=== PATIENT | male | born 1990 | race Caucasian/White ===

== ENCOUNTER 2016-08-21 20:06 | Emergency (ER) | payer BC ==
[~2016-08-21 20:06] MED LIST: Acetaminophen/HYDROcodone 325-5 MG Tab PO ONE; Ketorolac 10 MG Tab PO ONE
[2016-08-21 20:11] VITALS: BP 137/77
[2016-08-21] MEDS ORDERED: Take Home: Acetaminophen/HYDROcodone 325-5 MG, 2 Tab Pack PO ONE (20:52)
[2016-08-21] MEDS ORDERED: Take Home: Ketorolac 10 MG Tab, 4 Tab Pack PO ONE (20:53)
--- NOTE | 2016-08-21 20:57 | EDM.PDOC ---
ED HPI Trauma - General Chief Complaint: Lower Extremity Injury/Pain Stated Complaint: "I think I broke my foot" Time Seen by Provider: 08/21/16 20:29 Source: Reports: Patient History Limitations: Reports: No limitations - History of Present Illness INITIAL COMMENTS - FREE TEXT/NARRATIVE: Sebastián is a 26 yo male who presents to the ER with concerns of a foot fracture. States [place] out [place] the farm today and dropped a hitch onto his foot around 12: 30. States he worked the rest of the day and this evening when he got home he took his boot off and was unable to walk. States his pain is on the top of his foot and has noticed it to be quite swollen. States when he pushes off with his toes it causes a lot of discomfort. If he walks on the heel of his foot it is tolerable. Occurred When: this afternoon Occurred Where: work Method of Injury: direct blow Pain/Injury Location: Reports: lower extremity, left Associated Symptoms: Reports: trouble walking Allergies/ADRs: Allergies No Known Allergies Allergy (Verified 08/21/16 20:11) Home Medications: Ambulatory Orders . [No Known Home Meds] 08/21/16 [Confirmed 08/21/16] Past Medical History - Past Surgical History HEENT Surgical History: Reports: LASIK, Other (see below) Other HEENT Surgeries/Procedures: "nose surgery" GI Surgical History: Reports: Hernia, abdominal Social & Family History - Tobacco Use Smoking Status *Q: Never Smoker - Recreational Drug Use Recreational Drug Use: No Review of Systems - Review of Systems Review Of Systems: ROS reveals no pertinent complaints other than HPI. Trauma Exam - Physical Exam Exam: See Below Exam Limited By: No limitations General Appearance: Reports: alert, no apparent distress Extremities: Reports: pain with movement (increased discomfort with plantar flexion of the foot. ), tenderness (with palpation over the cuneiform/talus area. ), other (moderate amount of swelling over dorsum of foot). Denies: unable to bear weight Neurologic: Reports: no motor/sensory deficits Skin: Reports: Normal color, Warm/dry Course - Vital Signs Last Recorded V/S: Last Vital Signs Temp 98.9 F 08/21/16 20:07 Pulse 63 08/21/16 20:07 Resp 16 08/21/16 20:07 BP 137/77 08/21/16 20:07 Pulse Ox 97 08/21/16 20:07 - Orders/Labs/Meds Orders: Active Orders 24 hr Category Date Time Status Foot Comp Min 3V Rt [CR] Stat Exams 08/21/16 20:15 Taken Departure - Departure Time of Disposition: 20:59 Disposition: Home, Self-Care 01 Condition: good Clinical Impression: Contusion of right foot, initial encounter Qualifiers: Encounter type: initial encounter Qualified Code(s): S90.31XA - Contusion of right foot, initial encounter Instructions: Foot Contusion, [id number] Forms: ED Department Discharge Additional Instructions: 1) Dinuba 5/325 - 1 tablet every 6 hours as needed for severe pain 2) Toradol 10mg - 1 tablet every 6 hours as needed for moderate pain 3) Tylenol or ibuprofen every 4-6 hours for mild pain, do not take more than 3000 mg of Tylenol in a day (each Dinuba tab has 325mg) 4) Keep foot elevated as much as possible 5) Ice 20 minutes at a time at least 5 times a day. 6) Wear tacho wrap daily 7) Follow up if any concerns. - Problem List & Annotations (1) Contusion of right foot, initial encounter SNOMED Code(s): 12987960 Code(s): S90.31XA - CONTUSION OF RIGHT FOOT, INITIAL ENCOUNTER Status: Acute Current Visit: Yes Qualifiers: Encounter type: initial encounter Qualified Code(s): S90.31XA - Contusion of right foot, initial encounter - Problem List Review Problem List Initiated/Reviewed/Updated: Yes - My Orders Last 24 Hours: My Active Orders 08/21/16 20:15 Foot Comp Min 3V Rt [CR] Stat - Assessment/Plan Last 24 Hours: My Active Orders 08/21/16 20:15 Foot Comp Min 3V Rt [CR] Stat
== END 2016-08-21 21:09 | disposition home or self-care (01) ==
LOC: CC.ED 20:06
DX: S90.31XA Contusion of right foot, initial encounter (principal); W20.8XXA Other cause of strike by thrown, projected or falling object, initial encounter; Y99.0 Civilian activity done for income or pay
CPT/HCPCS: 73630; 99283; A9270